=== PATIENT | male | born 1960 | race Caucasian/White ===

== ENCOUNTER 2020-10-08 14:31 | Emergency (ER) | payer OTHER ==
[2020-10-08 14:42] VITALS: BP 157/99; PULSE 88; TEMP 99.2; BMI 29.8
[2020-10-08] MEDS ORDERED: ACETAMINOPHEN 500 MG TABLET (FP) PO ONE (15:29)
[2020-10-08] MEDS ORDERED: ACETAMINOPHEN 325 MG TABLET (FP) PO ONE (15:29)
[2020-10-08] MEDS ORDERED: ACETAMINOPHEN 500 MG TABLET (FP) ONE (15:32)
== END 2020-10-08 16:12 | disposition home or self-care (01) ==
LOC: FER 14:31
DX: S76.011A Strain of muscle, fascia and tendon of right hip, initial encounter (principal)
CPT/HCPCS: 73523-TC-FY; 73552-TC-RT-FY; 99284-25